=== PATIENT | male | born 1995 | race Asian ===

== ENCOUNTER 2018-03-03 21:21 | Inpatient (IN) | payer BC ==
--- NOTE | 2018-03-03 21:40 | ED ---
Psychiatric Complaint - HPI Summary HPI Summary: Patient is a 22 y/o M brought in via EMS for suicide attempt under 941 order. Patient and his partner broke up a week ago, SI has been building since this occurrence. He states that he was at [facility] prepared to jump off the bridge but states he stopped himself. He notes previous attempts of self- harm. Patient is on Lexapro 10 mg daily. On triage, pain is denied and it is noted that patient has had re-occurring psychiatric issues and has been seeing a therapist the past year. Home medications and allergies are reviewed. - History Of Current Complaint Chief Complaint: EDMentalHealth Time Seen by Provider: 03/03/18 21:32 Hx Obtained From: Patient Onset/Duration: Lasting Weeks - SI onset a week ago and built up since, Still Present, Worse Since - a week ago Timing: Weeks - onset a week ago Severity Currently: None - pain denied on triage Character: Depressed Aggravating Factor(s): Recent Stress - relationship ended Alleviating Factor(s): Nothing Associated Signs And Symptoms: Positive: Negative Has Suicidal: Reports: Thoughts, With A Plan - Allergies/Home Medications Allergies/Adverse Reactions: Allergies Allergy/AdvReac Type Severity Reaction Status Date / Time apple Allergy Hives/Diff. Verified 03/03/18 21:28 Breathing/I tching vasquez Allergy Hives/Diff. Verified 03/03/18 21:28 Breathing/I tching hazelnut Allergy Anaphylatic Verified 03/03/18 21:28 Shock naproxen Allergy Hives Verified 03/03/18 21:28 peach Allergy Hives/Diff. Verified 03/03/18 21:28 Breathing/I tching pear Allergy Hives/Diff. Verified 03/03/18 21:28 Breathing/I tching strawberry Allergy Hives/Diff. Verified 03/03/18 21:28 Breathing/I tching Tree Nuts Allergy Hives/Diff. Verified 03/03/18 21:28 Breathing/I tching Home Medications: Home Medications Albuterol HFA INHALER* 1 inh INH Q4H PRN 03/03/18 [History Confirmed 03/03/18] EPINEPHrine SYR 0.1MG/ML* [EPINEPHphrine SYR 0.1MG/ML*] 0.1 mg IM ONCE PRN 03/03 [History Confirmed 03/03/18] Escitalopram Oxalate [Lexapro 10 mg] 10 mg PO DAILY 03/03/18 [History Confirmed 03/03/18] Loratadine [Claritin 10 MG CAP] 10 mg PO PRN 03/03/18 [History] PMH/Surg Hx/FS Hx/Imm Hx Sensory History: Denies: Hx Legally Blind, Hx Deafness Opthamlomology History: Denies: Hx Legally Blind EENT History: Denies: Hx Deafness Psychiatric History: Reports: Hx Anxiety, Hx Bipolar Disorder Infectious Disease History: No Infectious Disease History: Denies: Traveled Outside the [place] in Last 30 Days - Family History Known Family History: Negative: Blood Disorder - Social History Alcohol Use: Rare Substance Use Type: Reports: Marijuana Smoking Status (MU): Never Smoked Tobacco Review of Systems Negative: Fever - on vitals, temp is 99 F Positive: Depressed, Other - SI w/ plan All Other Systems Reviewed And Are Negative: Yes Physical Exam - Summary Physical Exam Summary: VITAL SIGNS: Reviewed. GENERAL: Patient is a well-developed and nourished male who is lying comfortable in the stretcher. Patient is not in any acute respiratory distress. HEAD AND FACE: No signs of trauma. No ecchymosis, hematomas or skull depressions. No sinus tenderness. EYES: PERRLA, EOMI x 2, No injected conjunctiva, no nystagmus. EARS: Hearing grossly intact. Ear canals and tympanic membranes are within normal limits. MOUTH: Oropharynx within normal limits. NECK: Supple, trachea is midline, no adenopathy, no JVD, no carotid bruit, no c- spine tenderness, neck with full ROM. CHEST: Symmetric, no tenderness at palpation LUNGS: Clear to auscultation bilaterally. No wheezing or crackles. CVS: Regular rate and rhythm, S1 and S2 present, no murmurs or gallops appreciated. ABDOMEN: Soft, non-tender. No signs of distention. No rebound no guarding, and no masses palpated. Bowel sounds are normal. EXTREMITIES: FROM in all major joints, no edema, no cyanosis or clubbing. NEURO: Alert and oriented x 3. No acute neurological deficits. Speech is normal and follows commands. SKIN: Dry and warm Triage Information Reviewed: Yes Vital Signs On Initial Exam: Initial Vitals Temp Pulse Resp BP Pulse Ox 99 F 102 16 129/77 99 03/03/18 21:24 03/03/18 21:24 03/03/18 21:24 03/03/18 21:24 03/03/18 21:24 Vital Signs Reviewed: Yes Diagnostics - Vital Signs Vital Signs Temp Pulse Resp BP Pulse Ox 03/03/18 21:24 99 F 102 16 129/77 99 - Laboratory Result Diagrams: 03/03/18 21:50 03/03/18 22:39 Lab Statement: Any lab studies that have been ordered have been reviewed, and results considered in the medical decision making process. Re-Evaluation - Re-Evaluation First Eval Re-Evaluation Time: 23:36 Comment: Patient medically cleared for MHE. Course/Dx - Course Course Of Treatment: Patient is a 22 y/o M brought in via EMS for suicide attempt under 941 order. Patient and his partner broke up a week ago, SI has been building since this occurrence. He states that he was a [address] [place] prepared to jump off the bridge but states he stopped himself. He notes previous attempts of self-harm. Patient is on Lexapro 10 mg daily. On triage, pain is denied and it is noted that patient has had re-occurring psychiatric issues and has been seeing a therapist the past year. Physical exam was unremarkable. Tox screen was negative. UA showed 1+ blood and 1+ RBC. Labs showed TSH 2.64, ALT 80, glucose 105. Patient was medically cleared for MHE. 0125 Dr. Tamayo reviewed the patients case. Dr. Tamayo will admit patient to [facility] with Dx of bipolar disorder. - Differential Dx/Clinical Impression Provider Diagnosis: Bipolar disorder - Physician Notifications Discussed Care Of Patient With: Anthony Taamyo Time Discussed With Above Provider: 01:25 Instructed by Provider To: Other - 0125 Dr. Tamayo reviewed the patients case. Dr. Tamayo will admit patient to [facility] with Dx of bipolar disorder. Discharge - Sign-Out/Discharge Documenting (check all that apply): Patient Departure - admit - Discharge Plan Condition: Good Disposition: PSYCHIATRIC FACILITY-[facility] Referrals: No Primary Care Phys,NOPCP [Primary Care Provider] - - Attestation Statements Document Initiated by Scribe: Yes Documenting Scribe: Adriel White Provider For Whom Scribe is Documenting (Include Credential): Wally Smyth MD Scribe Attestation: Adriel Stroud , scribed for Wally Smyth MD on 03/04/18 at 0144.
[2018-03-03 21:59] LABS: ABS Basophils 0.1 10^3/ul (0-0.2); ABS Eosinophils 0.2 10^3/ul (0-0.6); ABS Monocytes 0.4 10^3/ul (0-0.8); ABS Neutrophils 5.5 10^3/ul (1.5-7.7); ABS Nucleated RBC 0 10^3/ul; Eosinophil % 2.6 % (0-6); Hematocrit 42 % (42-52); Hemoglobin 14.4 g/dl (14.0-18.0); Lymphocyte % 24.7 % (25-47); Mean Corpuscular HGB Conc 34 g/dl (31-36); Mean Corpuscular Hemoglobin 28 pg (27-31); Mean Corpuscular Volume 82 fL (80-94); Mean Platelet Volume 7.9 fL (7.4-10.4); Nucleated Red Blood Cells % 0.2; Platelet Count 341 10^3/ul (150-450); Red Blood Count 5.12 10^6/ul (4.00-5.40); Red Cell Distribution Width 14 % (10.5-15); White Blood Count 8.2 10^3/ul (3.5-10.8)
[2018-03-03 22:12] LABS: EGFR Non-African American 110.4 (>60)
[2018-03-03 22:49] LABS: Urine Appearance Clear; Urine Blood 1+ (Negative); Urine Color Yellow; Urine Ketones Negative (Negative); Urine Protein Negative (Negative); Urine Red Blood Cell 1+(3-5/hpf) (Absent); Urine Specific Gravity 1.023 (1.010-1.030); Urine Urobilinogen Negative (Negative); Urine White Blood Cell Absent (Absent)
[2018-03-04] MEDS ORDERED: Acetaminophen TAB* 325 MG PO PRN (06:38)
[2018-03-04] MEDS ORDERED: Al Hydrox/Mg Hydrox/Simet LIQ* 30 ML UDC PO PRN (06:38)
[2018-03-04] MEDS ORDERED: Albuterol HFA INHALER* 8 gm MDI INH PRN (07:30)
[2018-03-04] MEDS ORDERED: EPINEPHrine PEN ADULT(NF) 0.3 MG SYRINGE IM PRN (07:32)
[2018-03-04] MEDS: LORATADINE 10 MG PO SCH (09:54)
[2018-03-04] MEDS: CMC: Escitalopram (NF) 10 MG TAB PO SCH (09:54)
[2018-03-04] MEDS: Vitamin THERAPEUTIC TAB PO SCH (09:55)
--- NOTE | 2018-03-04 15:39 | HP ---
H&P (Free Text) History and Physical: JUSTIFICATION FOR ADMISSION: Patient presented to emergency room with suicidal ideation and self-aborted attempt, worsening depression and recent break up. He requires inpatient psychiatric admission in order to provide treatment and stabilization as he is a danger to himself. CHIEF COMPLAINT: "I was ready to but stopped myself and called [employer] [employer] [employer] HISTORY OF THE PRESENT ILLNESS: Patient is a 22 y/o male, single, living at student housing, attending jennifer year at [employer], with history of Depressive disorder. Patient was admitted to inpatient unit for worsening of his depression following recent break up with his boyfriend of 3 years, suicidal thoughts, feelings of hopeless , helpless and worthless. Patient reports that he was having increase energy level, decrease need for sleep, impulsive in his actions, euphoric/ irritable feeling with suicidal thoughts. Patient made preparations to end his life, writing letters, cleaning room, leaving passwords etc. At 7:45 PM [place] and other information in a baggie so he could be identified. He scaled a fence and then sat contemplating jumping for about 30 minutes but was unable to get off the vira. He then became upset and started to consider reasons to live and found that his relationship with his ex was something that stopped him. He then called public safety to bring him to the hospital. Patient was compliant with his outpatient medication but recently his Lexapro was reduced to 10 mg from 15m a day due to concerns of Bipolar Diagnosis and hypomanic symptoms. Patient reportedly has been reporting no psychotic symptoms. Patient denied any suicidal or homicidal ideation on the unit. Patient continued to exhibit behavior that is in control on the unit. Patient feels safe on the unit and is acceptive of the treatment . PAST PSYCHIATRIC HISTORY: Patient has history of no inpatient psychiatric hospitalization. Patient has history of outpatient psychiatric treatment for his depression at [facility] ([facility]) that he sees Dr. Pompa for. Patient also reports being on individual therapy on a weekly basis until spring of this year and was switched to weekly group therapy. As per patient he initially recommended a change in therapist and other therapist could see him once a month and he did not feel that (once a month frequency) was beneficial hence was switched to group therapy. Patients medication was Lexapro 15 mg a day which was reduced to 10 mg a day and was also started on Hydroxyzine as needed for anxiety and sleep. Patient has history of suicidal thoughts and plan in the past but no attempt (first was during high school due to conflict with his parents around his sexuality was talked out by his boyfriend, second was last summer when he wanted to drive off the vira but did not attempt). Patient has history of no homicidal threats, intent or attempt. Patient reports no history of aggressive and agitated behavior when decompensates. No access to firearm reported. SUBSTANCE ABUSE HISTORY: Patient uses marijuana not frequent about once in 2 month casually with friends. Patient reports using alcohol every other week but reported consuming heavy when in hypomanic episode. Urine toxicology was negative and blood alcohol level was <10. PAST MEDICAL HISTORY: No active medical problems ALLERGIES: Naproxen, food allergies as per chart. FAMILY PSYCHIATRIC HISTORY: Patient has family history of no know psychiatric illness or substance/alcohol abuse or suicide in the family. FAMILY/PSYCHOSOCIAL HISTORY: Patient currently lives at student housing. Patient is homosexual and was in a relationship with his ex- boyfriend until break up about a week ago. Patient is currently no in any romantic relationship. Patient education level is jennifer year at [employer]. Patient was raised by his parents in [place]. Patients relationship with parent was estranged when patient came out with his sexual orientation of being homosexual. Patient support system includes his friends. REVIEW OF SYSTEMS: Patients review of symptoms was negative for any physical complaint. Vitals were stable. Patients ED physical exam was reviewed which is grossly normal with no active medical problem. Physical Exam Summary: VITAL SIGNS: Reviewed. GENERAL: Patient is a well-developed and nourished male who is lying comfortable in the stretcher. Patient is not in any acute respiratory distress. HEAD AND FACE: No signs of trauma. No ecchymosis, hematomas or skull depressions. No sinus tenderness. EYES: PERRLA, EOMI x 2, No injected conjunctiva, no nystagmus. EARS: Hearing grossly intact. Ear canals and tympanic membranes are within normal limits. MOUTH: Oropharynx within normal limits. NECK: Supple, trachea is midline, no adenopathy, no JVD, no carotid bruit, no c- spine tenderness, neck with full ROM. CHEST: Symmetric, no tenderness at palpation LUNGS: Clear to auscultation bilaterally. No wheezing or crackles. CVS: Regular rate and rhythm, S1 and S2 present, no murmurs or gallops appreciated. ABDOMEN: Soft, non-tender. No signs of distention. No rebound no guarding, and no masses palpated. Bowel sounds are normal. EXTREMITIES: FROM in all major joints, no edema, no cyanosis or clubbing. NEURO: Alert and oriented x 3. No acute neurological deficits. Speech is normal and follows commands. MENTAL STATUS EXAMINATION: Appearance: 22 y/o male, anxious, sitting down, making fair eye contact, fair grooming and hygiene. Behavior: cooperative Gait: normal Abnormal motor activity: none Speech: normal tone and volume, normal rate and rhythm Mood: better Affect: euthymic to euphoric Thought process: coherent to circumstantial Thought Content: Suicidal/Homicidal ideation: denied at the time of evaluation Delusions: none Obsessions: none Phobia: none Perceptual disturbance: none Attention: fair Orientation: intact Concentration: fair Memory: fair Insight: fair Judgment: fair Impulse control: fair IMPRESSION: Patient with history of Depression and recent Hypomanic like symptoms. Patient currently admitted due to worsening of depression and suicidal thoughts mixed with some hypomanic symptoms. Patient has also struggled with recent break up from a relationship of 3 years. Patient is a danger to self if discharged hence will be stabilized on inpatient unit with medication adjustments and therapy. DIAGNOSIS: Bipolar Disorder unspecified Prov: Bipolar II Disorder vs Bipolar I Disorder PLAN: Admit to U on Q 15 min observation. Patient is full code. Patient is on voluntary admission status Integrate patient into the milieu individual and group psychotherapy MMPI and psychological consult with Dr. Bates. Social work consult for therapy and discharge planning Will hold family meeting with parents to increase Data base. Patient gave informed consent to start the following medications: Patient Lexapro was continued at 10 mg PO QAM with plan to increase as tolerated and covered with a mood stabilizer to prevent any manic symptoms. Patient was discussed about various mood stabilizer including second generation antipsychotic medications. Patient agreed to start Lamictal 25 mg PO QAM with plan to monitor improvement and side effects. Will continue to monitor and f/u for improvement and side effects. Sunil Diamond MD Attending Psychiatrist
[2018-03-04] MEDS: lamoTRIgine TAB(*) 25 MG PO SCH (16:24)
[2018-03-05] MEDS: LORATADINE 10 MG PO SCH (09:09)
[2018-03-05] MEDS: CMC: Escitalopram (NF) 10 MG TAB PO SCH (09:09)
[2018-03-05] MEDS: lamoTRIgine TAB(*) 25 MG PO SCH (09:10)
[2018-03-05] MEDS: Vitamin THERAPEUTIC TAB PO SCH (09:10)
[2018-03-05] MEDS ORDERED: hydrOXYzine HCL TAB* 50 MG PO PRN (11:51)
--- NOTE | 2018-03-05 12:25 | PN ---
Subjective - Subjective Date of Service: 03/05/18 Service Type: [id number] [facility] care 15 min low complexity Subjective: Patient was seen by self, discussed with treatment team, chart was reviewed. Patient has been compliant with his medications, no reported side effects. Patient reports continued symptoms of depression and anxiety, recurring suicidal thoughts but no intent or plan. Patient was restless and worried, wanting to cry. Patient sleeping has been fair. Patient eating has been fair. Patient has been cooperative with staff and following redirections. Patient behavior has been in control and safe on all check. Patient met his friends yesterday and felt better after that. Patient also communicated with parents and they will be visiting patients on the weekend. Patient mood was anxious and dysphoric. Patient has been reporting no homicidal ideation. No psychotic symptoms of delusions or hallucinations. Objective - Appearance Appearance: Healthy Appearing, Obese Dysmorphic Features: No Hygiene: Normal Grooming: Fairly Well Kept - Behavior Psychomotor Activities: Normal Exhibits Abnormal Movement: No - Attitude and Relatedness Attitude and Relatedness: Cooperative Eye Contact: Fair - Speech Quality: Unpressured Latencies: Normal Quantity: Appropriate - Mood Patient's Decription of Mood: "Anxious" - Affect Observed Affect: Tense Affect Consistent with: Dysphoria - Thought Process Patient's Thought Process: Coherent, Circumstantial Thought Content: Yes Passive Wish, No Suicidal Planning, No Homicidal Ideation, No Paranoid Ideation - Sensorium Experiencing Hallucinations: No, Sensorium is Clear Type of Hallucinations: Visual: No, Auditory: No, Command: No - Level of Consciousness Level of Consciousness: Alert Orientation: Yes Intact, Yes Orientated to Time, Yes Orientated to Place, Yes Orientated to Person - Impulse Control Impulse Control: Intact - Insight and Judgement Insight and Judgement: Fair - Group Participation Particating in Group Activities: Yes - Medication Management Medication Management Adherence: Yes Assessment - Assessment Merits Inpatient Hospitalization: For Immediate Safety, For Stabilization, For Discharge Planning Inpatient DSM-V Dx: F33.9 Clinical Impression: Patient with history of Depression and recent Hypomanic like symptoms. Patient currently admitted due to worsening of depression and suicidal thoughts mixed with some hypomanic symptoms. Patient has also struggled with recent break up from a relationship of 3 years. Patient is a danger to self if discharged hence will be stabilized on inpatient unit with medication adjustments and therapy. MHU: Problem List - Patient Problems (1) Bipolar affective disorder Current Visit: Yes Status: Acute (2) Anxiety disorder Current Visit: Yes Status: Acute Code(s): F41.9 - ANXIETY DISORDER, UNSPECIFIED SNOMED Code(s): 647252862 Plan - Plan Treatment Plan: Name: JUNIOR REDMAN Birthdate: 1995 [id number] - Patient continues to be hospitalized due to recent suicidal thoughts with aborted attempt, mood instability, anxiety and impulsivity. - Patient's medications were continued with Lamictal 25 mg a day and Lexapro 10 mg a day. - Patient will be monitored for improvement and side effects. Risk and benefits were discussed. - Patient was encouraged to continue his participation in the milieu, group and individual therapy. Medications: Current Medications Acetaminophen (Tylenol Tab*) 650 mg PO Q4H PRN PRN Reason: PAIN or TEMP > 101 F Al Hydrox/Mg Hydrox/Simethicone (Maalox Plus*) 30 ml PO Q4H PRN PRN Reason: INDIGESTION Albuterol (Ventolin Hfa Inhaler*) 1 puff INH Q4H PRN PRN Reason: SOB/WHEEZING Epinephrine HCl (Epipen Adult(Nf)) 0.3 mg IM ONCE PRN PRN Reason: ALLERGIC REACTION Escitalopram Oxalate (Lexapro (Nf)) 10 mg PO DAILY [facility] Last Admin: 03/05/18 09:09 Dose: 10 mg Hydroxyzine HCl (Atarax Tab*) 50 mg PO Q6H PRN PRN Reason: ANXIETY Lamotrigine (Lamictal Tab(*)) 25 mg PO DAILY [facility] Last Admin: 03/05/18 09:10 Dose: 25 mg Loratadine (Claritin Tab(Nf)) 10 mg PO DAILY [facility] Last Admin: 03/05/18 09:09 Dose: 10 mg Multivitamins (Theragran Tab*) 1 tab PO DAILY [facility] Last Admin: 03/05/18 09:10 Dose: 1 tab
--- NOTE | 2018-03-05 17:25 | PN ---
MHU: Group Therapy Note - Service Type Service Type: [id number] Group Psychotherapy - Medication Education Group: Patient was attentive and participatory in group, and remained in good behavioral control. Patient expressed positive insights regarding relevant treatment interventions. Patient stated understanding of material discussed and had appropriate questions.
[2018-03-06] MEDS: CMC: Escitalopram (NF) 10 MG TAB PO SCH (09:01)
[2018-03-06] MEDS: Vitamin THERAPEUTIC TAB PO SCH (09:01)
[2018-03-06] MEDS: LORATADINE 10 MG PO SCH (09:01)
[2018-03-06] MEDS: lamoTRIgine TAB(*) 25 MG PO SCH (09:01)
--- NOTE | 2018-03-06 13:11 | PN ---
Subjective - Subjective Date of Service: 03/06/18 Service Type: [id number] [facility] care 15 min low complexity Subjective: Patient was seen by self, discussed with treatment team, chart was reviewed. Patient has been compliant with his medications, no reported side effects. Patient reports continued some improvement in symptoms of depression and anxiety , reduction in suicidal thoughts. Patient was less restless and worried today and reports that yoga exercise helped him this morning and also had a better sleep last night. Patient eating has been fair. Patient has been cooperative with staff and following redirections. Patient was asking privileges to use computer. Patient behavior has been in control and safe on all check. Patient looking forward to have a meeting with his parents tomorrow evening. Patient mood was less anxious and dysphoric. Patient has been reporting no homicidal ideation. No psychotic symptoms of delusions or hallucinations. Objective - Appearance Appearance: Healthy Appearing, Obese Dysmorphic Features: No Hygiene: Normal Grooming: Fairly Well Kept - Behavior Psychomotor Activities: Normal Exhibits Abnormal Movement: No - Attitude and Relatedness Attitude and Relatedness: Cooperative Eye Contact: Fair - Speech Quality: Unpressured Latencies: Normal Quantity: Appropriate - Mood Patient's Decription of Mood: "Anxious" - Affect Observed Affect: Tense - less Affect Consistent with: Euthymia - Thought Process Patient's Thought Process: Coherent Thought Content: No Passive Wish, No Suicidal Planning, No Homicidal Ideation, No Paranoid Ideation - Sensorium Experiencing Hallucinations: No, Sensorium is Clear Type of Hallucinations: Visual: No, Auditory: No, Command: No - Level of Consciousness Level of Consciousness: Alert Orientation: Yes Intact, Yes Orientated to Time, Yes Orientated to Place, Yes Orientated to Person - Impulse Control Impulse Control: Intact - Insight and Judgement Insight and Judgement: Fair - Group Participation Particating in Group Activities: Yes - Medication Management Medication Management Adherence: Yes Assessment - Assessment Merits Inpatient Hospitalization: For Immediate Safety, For Stabilization, For Discharge Planning Inpatient DSM-V Dx: F33.9 Clinical Impression: Patient with history of Depression and recent Hypomanic like symptoms. Patient currently admitted due to worsening of depression and suicidal thoughts mixed with some hypomanic symptoms. Patient has also struggled with recent break up from a relationship of 3 years. Patient is a danger to self if discharged hence will be stabilized on inpatient unit with medication adjustments and therapy. MHU: Problem List - Patient Problems (1) Bipolar affective disorder Current Visit: Yes Status: Acute (2) Anxiety disorder Current Visit: Yes Status: Acute Code(s): F41.9 - ANXIETY DISORDER, UNSPECIFIED SNOMED Code(s): 949859531 Plan - Plan Treatment Plan: Name: JUNIOR REDMAN Birthdate: 1995 [id number] - Patient continues to be hospitalized due to recent suicidal thoughts with aborted attempt, mood instability, anxiety and impulsivity. - Patient's medications were continued with Lamictal 25 mg a day and Lexapro 10 mg a day. - Patient will be monitored for improvement and side effects. Risk and benefits were discussed. - Patient was encouraged to continue his participation in the milieu, group and individual therapy. Medications: Current Medications Acetaminophen (Tylenol Tab*) 650 mg PO Q4H PRN PRN Reason: PAIN or TEMP > 101 F Al Hydrox/Mg Hydrox/Simethicone (Maalox Plus*) 30 ml PO Q4H PRN PRN Reason: INDIGESTION Albuterol (Ventolin Hfa Inhaler*) 1 puff INH Q4H PRN PRN Reason: SOB/WHEEZING Epinephrine HCl (Epipen Adult(Nf)) 0.3 mg IM ONCE PRN PRN Reason: ALLERGIC REACTION Escitalopram Oxalate (Lexapro (Nf)) 10 mg PO DAILY [facility] Last Admin: 03/06/18 09:01 Dose: 10 mg Hydroxyzine HCl (Atarax Tab*) 50 mg PO Q6H PRN PRN Reason: ANXIETY Lamotrigine (Lamictal Tab(*)) 25 mg PO DAILY [facility] Last Admin: 03/06/18 09:01 Dose: 25 mg Loratadine (Claritin Tab(Nf)) 10 mg PO DAILY [facility] Last Admin: 03/06/18 09:01 Dose: 10 mg Multivitamins (Theragran Tab*) 1 tab PO DAILY [facility] Last Admin: 03/06/18 09:01 Dose: 1 tab
[2018-03-07] MEDS: Vitamin THERAPEUTIC TAB PO SCH (08:53)
[2018-03-07] MEDS: lamoTRIgine TAB(*) 25 MG PO SCH (08:53)
[2018-03-07] MEDS: CMC: Escitalopram (NF) 10 MG TAB PO SCH (08:53)
[2018-03-07] MEDS: LORATADINE 10 MG PO SCH (08:53)
--- NOTE | 2018-03-07 11:44 | PN ---
MHU: Group Therapy Note - Service Type Service Type: [id number] Group Psychotherapy - Cognitive Behavioral Group Therapy ( CBT):Patient was attentive and participatory in CBT programming this morning, and remained in good behavioral control. Patient expressed positive insights regarding relevant treatment interventions and goals.
[2018-03-07] MEDS ORDERED: diPHENhydraMINE PO* 50 MG ONE (12:31)
--- NOTE | 2018-03-07 12:52 | PN ---
Subjective - Subjective Date of Service: 03/07/18 Service Type: [id number] Hosp care 15 min low complexity Subjective: Patient was seen by self, discussed with treatment team, chart was reviewed. Patient has been compliant with his medications, no reported side effects. Patient reports continued improvement in symptoms of depression and anxiety, reduction in suicidal thoughts, patient reports some anxiety and stress around meeting with parents tonight. Patient feels that they are not supportive of his decision and wants to be assertive with his parents and treatment that he is seeking. Patient reports that his mother is a nurse but has limited understanding of mental health and treatment. Patient attending groups and using privileges appropriately . Patient eating has been fair. Patient has been cooperative with staff and following redirections. Patient behavior has been in control and safe on all check. Patient mood was less anxious and dysphoric. Patient has been reporting no homicidal ideation. No psychotic symptoms of delusions or hallucinations. Patient was educated about side effects from lamictal including Rash and needing to go up slowly. Objective - Appearance Appearance: Healthy Appearing, Obese Dysmorphic Features: No Hygiene: Normal Grooming: Fairly Well Kept - Behavior Psychomotor Activities: Normal Exhibits Abnormal Movement: No - Attitude and Relatedness Attitude and Relatedness: Cooperative Eye Contact: Fair - Speech Quality: Unpressured Latencies: Normal Quantity: Terse - Mood Patient's Decription of Mood: "Anxious" - Affect Observed Affect: Tense Affect Consistent with: Euphoria - less - Thought Process Patient's Thought Process: Coherent Thought Content: No Passive Wish, No Suicidal Planning, No Homicidal Ideation, No Paranoid Ideation - Sensorium Experiencing Hallucinations: No, Sensorium is Clear Type of Hallucinations: Visual: No, Auditory: No, Command: No - Level of Consciousness Level of Consciousness: Alert Orientation: Yes Intact, Yes Orientated to Time, Yes Orientated to Place, Yes Orientated to Person - Impulse Control Impulse Control: Intact - Insight and Judgement Insight and Judgement: Fair - Group Participation Particating in Group Activities: Yes - Medication Management Medication Management Adherence: Yes Assessment - Assessment Merits Inpatient Hospitalization: For Immediate Safety, For Stabilization, For Discharge Planning Inpatient DSM-V Dx: F33.9 Clinical Impression: Patient with history of Depression and recent Hypomanic like symptoms. Patient currently admitted due to worsening of depression and suicidal thoughts mixed with some hypomanic symptoms. Patient has also struggled with recent break up from a relationship of 3 years. Patient is a danger to self if discharged hence will be stabilized on inpatient unit with medication adjustments and therapy. MHU: Problem List - Patient Problems (1) Bipolar affective disorder Current Visit: Yes Status: Acute (2) Anxiety disorder Current Visit: Yes Status: Acute Code(s): F41.9 - ANXIETY DISORDER, UNSPECIFIED SNOMED Code(s): 124310550 Plan - Plan Treatment Plan: Name: JUNIOR REDMAN Birthdate: 1995 [id number] - Patient continues to be hospitalized due to recent suicidal thoughts with aborted attempt, mood instability, anxiety and impulsivity. - Patient's medications were continued with Lamictal 25 mg a day and Lexapro 10 mg a day. - Patient to meet his parents tonight that are coming from [place]. - Patient will be monitored for improvement and side effects. Risk and benefits were discussed. - Patient was encouraged to continue his participation in the milieu, group and individual therapy. Medications: Current Medications Acetaminophen (Tylenol Tab*) 650 mg PO Q4H PRN PRN Reason: PAIN or TEMP > 101 F Al Hydrox/Mg Hydrox/Simethicone (Maalox Plus*) 30 ml PO Q4H PRN PRN Reason: INDIGESTION Albuterol (Ventolin Hfa Inhaler*) 1 puff INH Q4H PRN PRN Reason: SOB/WHEEZING Epinephrine HCl (Epipen Adult(Nf)) 0.3 mg IM ONCE PRN PRN Reason: ALLERGIC REACTION Escitalopram Oxalate (Lexapro (Nf)) 10 mg PO DAILY [facility] Last Admin: 03/07/18 08:53 Dose: 10 mg Hydroxyzine HCl (Atarax Tab*) 50 mg PO Q6H PRN PRN Reason: ANXIETY Lamotrigine (Lamictal Tab(*)) 25 mg PO DAILY [facility] Last Admin: 03/07/18 08:53 Dose: 25 mg Loratadine (Claritin Tab(Nf)) 10 mg PO DAILY [facility] Last Admin: 03/07/18 08:53 Dose: 10 mg Multivitamins (Theragran Tab*) 1 tab PO DAILY [facility] Last Admin: 03/07/18 08:53 Dose: 1 tab
[2018-03-07] MEDS ORDERED: diPHENhydraMINE PO* 50 MG PO ONE (15:00)
[2018-03-08] MEDS: LORATADINE 10 MG PO SCH (08:57)
[2018-03-08] MEDS: CMC: Escitalopram (NF) 10 MG TAB PO SCH (08:57)
[2018-03-08] MEDS: lamoTRIgine TAB(*) 25 MG PO SCH (08:57)
[2018-03-08] MEDS: Vitamin THERAPEUTIC TAB PO SCH (08:58)
[2018-03-09] MEDS: LORATADINE 10 MG PO SCH (09:05)
[2018-03-09] MEDS: lamoTRIgine TAB(*) 25 MG PO SCH (09:05)
[2018-03-09] MEDS: Vitamin THERAPEUTIC TAB PO SCH (09:05)
[2018-03-09] MEDS: CMC: Escitalopram (NF) 10 MG TAB PO SCH (09:05)
--- NOTE | 2018-03-09 19:42 | PN ---
Subjective - Subjective Date of Service: 03/09/18 Service Type: [id number] Hosp care 15 min low complexity Subjective: Junior reports that he was more depressed today than yesterday and suicide crossed his mind again this morning. His parents and few close friends visited which did help. Having difficulty with sleep which is interupted a lot. Appetite is good. Denies psychosis. Objective - Appearance Appearance: Healthy Appearing, Obese Dysmorphic Features: No Hygiene: Normal Grooming: Well Kept - Behavior Psychomotor Activities: Normal Exhibits Abnormal Movement: No - Attitude and Relatedness Attitude and Relatedness: Cooperative Eye Contact: Fair - Speech Quality: Unpressured Latencies: Normal Quantity: Appropriate - Mood Patient's Decription of Mood: "Sad" - Affect Observed Affect: Constricted - Thought Process Patient's Thought Process: Coherent, Goal Directed Thought Content: Yes Passive Wish, No Suicidal Planning, No Homicidal Ideation, No Paranoid Ideation - Sensorium Experiencing Hallucinations: No, Sensorium is Clear Type of Hallucinations: Visual: No, Auditory: No, Command: No - Level of Consciousness Level of Consciousness: Alert Orientation: Yes Intact, Yes Orientated to Time, Yes Orientated to Place, Yes Orientated to Person - Impulse Control Impulse Control: Tenuous - Insight and Judgement Insight and Judgement: Poor - Group Participation Particating in Group Activities: Yes - Medication Management Medication Management Adherence: Yes Assessment - Assessment Merits Inpatient Hospitalization: For Immediate Safety, For Stabilization, Pending Safe DC Plan Inpatient DSM-V Dx: F33.9 Clinical Impression: Patient with history of Depression and recent Hypomanic like symptoms. Patient currently admitted due to worsening of depression and suicidal thoughts mixed with some hypomanic symptoms. Patient has also struggled with recent break up from a relationship of 3 years. Patient is a danger to self if discharged hence will be stabilized on inpatient unit with medication adjustments and therapy. Plan - Plan Treatment Plan: Name: JUNIOR REDMAN Birthdate: 1995 [id number] - Patient continues to be hospitalized due to recent suicidal thoughts with aborted attempt, mood instability, anxiety and impulsivity. - Patient's medications were continued with Lamictal 25 mg a day and Lexapro 10 mg a day. - Patient to meet his parents tonight that are coming from [place]. - Patient will be monitored for improvement and side effects. Risk and benefits were discussed. - Patient was encouraged to continue his participation in the milieu, group and individual therapy. Continued Medication Management: Continue Outpt Medication Medications: Current Medications Acetaminophen (Tylenol Tab*) 650 mg PO Q4H PRN PRN Reason: PAIN or TEMP > 101 F Al Hydrox/Mg Hydrox/Simethicone (Maalox Plus*) 30 ml PO Q4H PRN PRN Reason: INDIGESTION Albuterol (Ventolin Hfa Inhaler*) 1 puff INH Q4H PRN PRN Reason: SOB/WHEEZING Epinephrine HCl (Epipen Adult(Nf)) 0.3 mg IM ONCE PRN PRN Reason: ALLERGIC REACTION Escitalopram Oxalate (Lexapro (Nf)) 10 mg PO DAILY [facility] Last Admin: 03/09/18 09:05 Dose: 10 mg Hydroxyzine HCl (Atarax Tab*) 50 mg PO Q6H PRN PRN Reason: ANXIETY Lamotrigine (Lamictal Tab(*)) 25 mg PO DAILY [facility] Last Admin: 03/09/18 09:05 Dose: 25 mg Loratadine (Claritin Tab(Nf)) 10 mg PO DAILY [facility] Last Admin: 03/09/18 09:05 Dose: 10 mg Multivitamins (Theragran Tab*) 1 tab PO DAILY [facility] Last Admin: 03/09/18 09:05 Dose: 1 tab - Discharge Plan Discharge Plan: Outpatient Follow Up Outpatient Program: [facility]
[2018-03-10] MEDS: CMC: Escitalopram (NF) 10 MG TAB PO SCH (08:54)
[2018-03-10] MEDS: lamoTRIgine TAB(*) 25 MG PO SCH (08:54)
[2018-03-10] MEDS: Vitamin THERAPEUTIC TAB PO SCH (08:54)
[2018-03-10] MEDS: LORATADINE 10 MG PO SCH (08:54)
--- NOTE | 2018-03-10 13:08 | PN ---
Subjective - Subjective Date of Service: 03/10/18 Service Type: [id number] [facility] care 15 min low complexity Subjective: Patient was seen by self, discussed with treatment team, chart was reviewed. Patient has been compliant with his medications, no reported side effects. Patient reports continued improvement in symptoms of depression and anxiety, resolution of suicidal thoughts, patient do report some anxiety and stress after meeting with parents and reemergence of suicidal thoughts briefly over the weekend. Patient felt that parents were not supportive of his hospitalization and wanted to him to take care of things better outside the hospital. But patient feels better today after processing his thinking and feels that he was able to be assertive in his decision making and was able to get his message across to his parents. Patient reports that therapy help him and feels that friends are very supportive of him. Patient reports that he is going to make it less stressful for him in the community upon discharge and more supportive. Patient attending groups and using privileges appropriately . Patient eating has been fair. Patient has been cooperative with staff and following redirections. Patient behavior has been in control and safe on all check. Patient has been reporting no homicidal ideation. No psychotic symptoms of delusions or hallucinations. Objective - Appearance Appearance: Healthy Appearing, Obese Dysmorphic Features: No Hygiene: Normal Grooming: Fairly Well Kept - Behavior Psychomotor Activities: Normal Exhibits Abnormal Movement: No - Attitude and Relatedness Attitude and Relatedness: Cooperative Eye Contact: Fair - Speech Quality: Unpressured Latencies: Normal Quantity: Appropriate - Mood Patient's Decription of Mood: "Fine" - Affect Observed Affect: Fair Affect Consistent with: Dysphoria - Thought Process Patient's Thought Process: Coherent, Goal Directed Thought Content: No Passive Wish, No Suicidal Planning, No Homicidal Ideation, No Paranoid Ideation - Sensorium Experiencing Hallucinations: No, Sensorium is Clear Type of Hallucinations: Visual: No, Auditory: No, Command: No - Level of Consciousness Level of Consciousness: Alert Orientation: Yes Intact, Yes Orientated to Time, Yes Orientated to Place, Yes Orientated to Person - Impulse Control Impulse Control: Intact - Insight and Judgement Insight and Judgement: Fair - Group Participation Particating in Group Activities: Yes - Medication Management Medication Management Adherence: Yes Assessment - Assessment Merits Inpatient Hospitalization: For Immediate Safety, For Stabilization, For Discharge Planning Inpatient DSM-V Dx: F33.9 Clinical Impression: Patient with history of Depression and recent Hypomanic like symptoms. Patient currently admitted due to worsening of depression and suicidal thoughts mixed with some hypomanic symptoms. Patient has also struggled with recent break up from a relationship of 3 years. Patient is a danger to self if discharged hence will be stabilized on inpatient unit with medication adjustments and therapy. MHU: Problem List - Patient Problems (1) Bipolar affective disorder Current Visit: Yes Status: Acute (2) Anxiety disorder Current Visit: Yes Status: Acute Code(s): F41.9 - ANXIETY DISORDER, UNSPECIFIED SNOMED Code(s): 732983372 Plan - Plan Treatment Plan: Name: JUNIOR REDMAN Birthdate: 1995 [id number] - Patient continues to be hospitalized due to recent suicidal thoughts with aborted attempt, mood instability, anxiety and impulsivity. - Patient's medications were continued with Lamictal 25 mg a day and Lexapro 10 mg a day. - Patient provided supportive therapy and planing discharge for tomorrow if continued improvement with outpatient appointment. - Patient will be monitored for improvement and side effects. Risk and benefits were discussed. - Patient was encouraged to continue his participation in the milieu, group and individual therapy. Medications: Current Medications Acetaminophen (Tylenol Tab*) 650 mg PO Q4H PRN PRN Reason: PAIN or TEMP > 101 F Al Hydrox/Mg Hydrox/Simethicone (Maalox Plus*) 30 ml PO Q4H PRN PRN Reason: INDIGESTION Albuterol (Ventolin Hfa Inhaler*) 1 puff INH Q4H PRN PRN Reason: SOB/WHEEZING Epinephrine HCl (Epipen Adult(Nf)) 0.3 mg IM ONCE PRN PRN Reason: ALLERGIC REACTION Escitalopram Oxalate (Lexapro (Nf)) 10 mg PO DAILY [facility] Last Admin: 03/10/18 08:54 Dose: 10 mg Hydroxyzine HCl (Atarax Tab*) 50 mg PO Q6H PRN PRN Reason: ANXIETY Lamotrigine (Lamictal Tab(*)) 25 mg PO DAILY [facility] Last Admin: 03/10/18 08:54 Dose: 25 mg Loratadine (Claritin Tab(Nf)) 10 mg PO DAILY [facility] Last Admin: 03/10/18 08:54 Dose: 10 mg Multivitamins (Theragran Tab*) 1 tab PO DAILY [facility] Last Admin: 03/10/18 08:54 Dose: 1 tab
[2018-03-10] MEDS ORDERED: Benzocaine (DENTAL) 10%* TOP.GEL TOPICAL PRN (15:28)
[2018-03-10] MEDS ORDERED: BENZOCAINE TOPICAL PRN (15:53)
[2018-03-11 08:00] VITALS: BP 121/75
[2018-03-11] MEDS: LORATADINE 10 MG PO SCH (08:51)
[2018-03-11] MEDS: CMC: Escitalopram (NF) 10 MG TAB PO SCH (08:51)
[2018-03-11] MEDS: lamoTRIgine TAB(*) 25 MG PO SCH (08:51)
[2018-03-11] MEDS: Vitamin THERAPEUTIC TAB PO SCH (08:51)
--- NOTE | 2018-03-11 16:14 | DS ---
Subjective - Subjective Service Types: [id number] [facility] complex over 30 min Discharge Date: 03/11/18 Subjective: JUSTIFICATION FOR ADMISSION: Patient presented to emergency room with suicidal ideation and self-aborted attempt, worsening depression and recent break up. He requires inpatient psychiatric admission in order to provide treatment and stabilization as he is a danger to himself. CHIEF COMPLAINT: "I was ready to but stopped myself and called [employer] [employer] HISTORY OF THE PRESENT ILLNESS: Patient is a 22 y/o male, single, living at student housing, attending jennifer year at [employer], with history of Depressive disorder. Patient was admitted to inpatient unit for worsening of his depression following recent break up with his boyfriend of 3 years, suicidal thoughts, feelings of hopeless , helpless and worthless. Patient reports that he was having increase energy level, decrease need for sleep, impulsive in his actions, euphoric/ irritable feeling with suicidal thoughts. Patient made preparations to end his life, writing letters, cleaning room, leaving passwords etc. At 7:45 PM [place] and other information in a baggie so he could be identified. He scaled a fence and then sat contemplating jumping for about 30 minutes but was unable to get off the vira. He then became upset and started to consider reasons to live and found that his relationship with his ex was something that stopped him. He then called public safety to bring him to the hospital. Patient was compliant with his outpatient medication but recently his Lexapro was reduced to 10 mg from 15m a day due to concerns of Bipolar Diagnosis and hypomanic symptoms. Patient reportedly has been reporting no psychotic symptoms. Patient denied any suicidal or homicidal ideation on the unit. Patient continued to exhibit behavior that is in control on the unit. Patient feels safe on the unit and is acceptive of the treatment . PAST PSYCHIATRIC HISTORY: Patient has history of no inpatient psychiatric hospitalization. Patient has history of outpatient psychiatric treatment for his depression at [facility] ([facility]) that he sees Dr. Pompa for. Patient also reports being on individual therapy on a weekly basis until spring of this year and was switched to weekly group therapy. As per patient he initially recommended a change in therapist and other therapist could see him once a month and he did not feel that (once a month frequency) was beneficial hence was switched to group therapy. Patients medication was Lexapro 15 mg a day which was reduced to 10 mg a day and was also started on Hydroxyzine as needed for anxiety and sleep. Patient has history of suicidal thoughts and plan in the past but no attempt (first was during high school due to conflict with his parents around his sexuality was talked out by his boyfriend, second was last summer when he wanted to drive off the vira but did not attempt). Patient has history of no homicidal threats, intent or attempt. Patient reports no history of aggressive and agitated behavior when decompensates. No access to firearm reported. SUBSTANCE ABUSE HISTORY: Patient uses marijuana not frequent about once in 2 month casually with friends. Patient reports using alcohol every other week but reported consuming heavy when in hypomanic episode. Urine toxicology was negative and blood alcohol level was <10. PAST MEDICAL HISTORY: No active medical problems ALLERGIES: Naproxen, food allergies as per chart. FAMILY PSYCHIATRIC HISTORY: Patient has family history of no know psychiatric illness or substance/alcohol abuse or suicide in the family. FAMILY/PSYCHOSOCIAL HISTORY: Patient currently lives at student housing. Patient is homosexual and was in a relationship with his ex- boyfriend until break up about a week ago. Patient is currently no in any romantic relationship. Patient education level is jennifer year at [employer]. Patient was raised by his parents in [place]. Patients relationship with parent was estranged when patient came out with his sexual orientation of being homosexual. Patient support system includes his friends. REVIEW OF SYSTEMS: Patients review of symptoms was negative for any physical complaint. Vitals were stable. Patients ED physical exam was reviewed which is grossly normal with no active medical problem. Physical Exam Summary: VITAL SIGNS: Reviewed. GENERAL: Patient is a well-developed and nourished male who is lying comfortable in the stretcher. Patient is not in any acute respiratory distress. HEAD AND FACE: No signs of trauma. No ecchymosis, hematomas or skull depressions. No sinus tenderness. EYES: PERRLA, EOMI x 2, No injected conjunctiva, no nystagmus. EARS: Hearing grossly intact. Ear canals and tympanic membranes are within normal limits. MOUTH: Oropharynx within normal limits. NECK: Supple, trachea is midline, no adenopathy, no JVD, no carotid bruit, no c- spine tenderness, neck with full ROM. CHEST: Symmetric, no tenderness at palpation LUNGS: Clear to auscultation bilaterally. No wheezing or crackles. CVS: Regular rate and rhythm, S1 and S2 present, no murmurs or gallops appreciated. ABDOMEN: Soft, non-tender. No signs of distention. No rebound no guarding, and no masses palpated. Bowel sounds are normal. EXTREMITIES: FROM in all major joints, no edema, no cyanosis or clubbing. NEURO: Alert and oriented x 3. No acute neurological deficits. Speech is normal and follows commands. MENTAL STATUS EXAMINATION On ADMISSION: Appearance: 22 y/o male, anxious, sitting down, making fair eye contact, fair grooming and hygiene. Behavior: cooperative Gait: normal Abnormal motor activity: none Speech: normal tone and volume, normal rate and rhythm Mood: better Affect: euthymic to euphoric Thought process: coherent to circumstantial Thought Content: Suicidal/Homicidal ideation: denied at the time of evaluation Delusions: none Obsessions: none Phobia: none Perceptual disturbance: none Attention: fair Orientation: intact Concentration: fair Memory: fair Insight: fair Judgment: fair Impulse control: fair DIAGNOSIS on ADMISSION: Bipolar Disorder unspecified Prov: Bipolar II Disorder vs Bipolar I Disorder DIAGNOSIS on DISCHARGE: Bipolar Disorder unspecified, Anxiety Disorder unspecified Objective - Appearance Appearance: Healthy Appearing, Obese Dysmorphic Features: No Hygiene: Normal Grooming: Fairly Well Kept - Behavior Psychomotor Activities: Normal Exhibits Abnormal Movement: No - Attitude and Relatedness Attitude and Relatedness: Cooperative Eye Contact: Fair - Speech Quality: Unpressured Latencies: Normal Quantity: Appropriate - Mood Patient's Decription of Mood: "Fine" - Affect Observed Affect: Fair Affect Consistent with: Euthymia - Thought Process Patient's Thought Process: Coherent Thought Content: No Passive Wish, No Suicidal Planning, No Homicidal Ideation, No Paranoid Ideation - Sensorium Experiencing Hallucinations: No, Sensorium is Clear Type of Hallucinations: Visual: No, Auditory: No, Command: No - Level of Consciousness Level of Consciousness: Alert Orientation: Yes Intact, Yes Orientated to Time, Yes Orientated to Place, Yes Orientated to Person - Impulse Control Impulse Control: Intact - Insight and Judgement Insight and Judgement: Fair - Group Participation Particating in Group Activities: Yes - Medication Management Medication Management Adherence: Yes Treatment Course & Assessment Clinical Course & Impression: Patient is 22 y/o male with history of Depression and recent Hypomanic like symptoms. Patient currently admitted due to worsening of depression and suicidal thoughts mixed with some hypomanic symptoms. Patient has also struggled with recent break up from a relationship of 3 years. Patient was a danger to self if discharged hence will be stabilized on inpatient unit with medication adjustments and therapy. Patient was admitted to [email or web address] on Q 15 min observation. Patient was on voluntary admission status. Integrate patient into the milieu,individual and group psychotherapy. Social work consulted for therapy and discharge planning. Patient gave informed consent to restart Lexapro at 10 mg PO QAM with plan to increase as tolerated and covered with a mood stabilizer to prevent any manic symptoms. Patient was discussed about various mood stabilizer including second generation antipsychotic medications. Patient agreed to start Lamictal 25 mg PO QAM with plan to monitor improvement and side effects. Patient was educated about possible side effects including SJS. During initial days of hospitalization. Patient reported continued symptoms of depression and anxiety, recurring suicidal thoughts but no intent or plan. Patient was restless and worried, wanting to cry. Patient sleeping and eating was fair. Patient was cooperative with staff and following redirections. Patient behavior was in control and safe on all check. Patient met his friends during this hospitalization and felt better afterwards. Patient's medications were continued with Lamictal 25 mg a day and Lexapro 10 mg a day and was tolerating it well without any side effects. Patient was attentive and participatory in group during this hospitalization, and remained in good behavioral control. Patient expressed positive insights regarding relevant treatment interventions. Patient stated understanding of material discussed and had appropriate questions. Patient reports continued improvement in symptoms of depression and anxiety, reduction in suicidal thoughts. Patient was less restless and less worried was sleeping better and participating in exercise class. Patient behavior was in good control and safe on all check. Patient was cooperative with staff and was granted comfort room privileges, staff pass with reduction in level of observation to Q30 minutes. Patient utilized it appropriately. Patient felt that parents were not supportive of his hospitalization and wanted him to take care of things better outside the hospital. But patient feels better today after processing his thinking and feels that he was able to be assertive in his decision making and was able to get his message across to his parents. Patient reported that therapy helped him and feels that friends are very supportive of him. Patient was able to use his coping skills effectively. Patient was planning to make it less stressful for him in the community upon discharge and more supportive. Patient was attending groups and using privileges appropriately. Patient reported having oral sore after biting his lips but no rash or other symptoms or signs related to SJS. Patient improved, mood was stable and behavior was in control, safe on all check. Patent reported no suicidal homicidal ideation. Patient was feeling safe returning to his routine in the community. No manic or psychotic symptoms of delusions or hallucinations. Patient was discussed with team and discharge was planned for today. As patient was not a danger to self and others and taking care of him self well. Patient was willing to follow up with outpatient care [facility] with Dr. Pompa and DBT groups. Patient was also referred to a therapist that he can follow up on a regular basis. Patient was also counseled about alcohol use and will maintain abstinence by himself and no craving or urges reported. Merits Inpatient Hospitalization: No Clear for Discharge: Adequate Clinical Respons, Acceptable Safety Profile, Low Utility of Inpt Care Inpatient DSM-V Dx: F31.9 Discharge Planning - Discharge Planning Discharge Plan: Outpatient Follow Up Recommendations for Continuing Care: Medication Management, Psychotherapy Medications: Discharge Medications: Albuterol (Ventolin Hfa Inhaler*) 1 puff INH Q4H PRN PRN Reason: SOB/WHEEZING Escitalopram Oxalate (Lexapro (Nf)) 10 mg PO DAILY [facility] Last Admin: 03/11/18 08:51 Dose: 10 mg Hydroxyzine HCl (Atarax Tab*) 50 mg PO BID PRN PRN Reason: ANXIETY Lamotrigine (Lamictal Tab(*)) 25 mg PO DAILY [facility] First Week of discharge and then Lamictal 50 mg PO Daily Second and Third Week Last Admin: 03/11/18 08:51 Dose: 25 mg Discharge Planning: Prescriptions provided for discharge [x] Yes [] No Follow up care details as per social work arrangements. Patient response to discharge plan: [x] eager for discharge [] agreeable with discharge plan [] ambivalent about discharge [] disagrees with discharge today
== END 2018-03-11 15:00 | disposition home or self-care (01) | DRG 753 ==
LOC: ED 21:21 → BSU 03-04 01:15 → ED 03-04 02:47
PROVIDERS: ADMIT Psychiatry & Neurology Psychiatry; ATTEND Psychiatry & Neurology Psychiatry
DX: F31.9 Bipolar disorder, unspecified (principal); R45.851 Suicidal ideations; F41.9 Anxiety disorder, unspecified; Z79.899 Other long term (current) drug therapy; Z88.8 Allergy status to other drugs, medicaments and biological substances; Z91.018 Allergy to other foods
CPT/HCPCS: 36415; 80053; 80307; 80320; 80329; 81003; 81015; 84443; 85025; 90686; 90853; 99222; 99231; 99238; 99284; A9270-GY; G0480

== ENCOUNTER 2018-04-14 17:12 | Emergency (ER) | payer BC ==
[2018-04-14] MEDS ORDERED: NS 0.9% 1000 ML* 1,000 ML IV ONE (17:21)
[2018-04-14] MEDS ORDERED: Famotidine IV* 10 MG/ML 2 ML (20 mg) IV SLOW PU ONE (17:22)
--- NOTE | 2018-04-14 17:24 | ED ---
Allergic Reaction/Systemic - HPI Summary HPI Summary: 22-year-old male presents with potentially allergic reaction today. He states that 2 days ago he started to notice some swelling in his lipds. He states that woke up and the swelling is worse. He states that his tongue and cheek started to swell. He went to [facility] and they gave him epinephrine , solu-medrol, and Benadryl. He states the swelling has gone down. He denies any chest pressure or shortness of breath. No hives. No sore throat. No nausea vomiting or abdominal pain. He states just now that his lips just feels swollen. He has never had this reaction before. He has history of extensive food allergies but does not give normally get this reaction. He denies any new foods or products. He states that he has been slowly titrating up the Lamictal for bipolar. he started the 100mg dose a week ago. He states this is the only new medication he has been taking. he also currently takes lexapro which he has been taking for a while. he was not on any other medication beside lexapro prior. no si/hi. - History of Current Complaint Chief Complaint: EDAllergicReaction Time Seen by Provider: 04/14/18 17:14 Pain Intensity: 0 - Allergies/Home Medications Allergies/Adverse Reactions: Allergies Allergy/AdvReac Type Severity Reaction Status Date / Time apple Allergy Hives/Diff. Verified 04/14/18 17:17 Breathing/I tching vasquez Allergy Hives/Diff. Verified 04/14/18 17:17 Breathing/I tching hazelnut Allergy Anaphylatic Verified 04/14/18 17:17 Shock naproxen Allergy Hives Verified 04/14/18 17:17 peach Allergy Hives/Diff. Verified 04/14/18 17:17 Breathing/I tching pear Allergy Hives/Diff. Verified 04/14/18 17:17 Breathing/I tching strawberry Allergy Hives/Diff. Verified 04/14/18 17:17 Breathing/I tching Tree Nuts Allergy Hives/Diff. Verified 04/14/18 17:17 Breathing/I tching Home Medications: Home Medications LoraTADine TAB(NF) [Claritin 10 MG TAB(NF)] 10 mg PO DAILY PRN 04/14/18 [ History Confirmed 04/14/18] lamoTRIgine TAB(*) [LaMICtal TAB(*)] 100 mg PO BEDTIME 04/14/18 [History Confirmed 04/14/18] PMH/Surg Hx/FS Hx/Imm Hx Endocrine/Hematology History: Reports: Hx Diabetes - Pt has been diagnosed as pre diabetic, Other Endocrine/Hematological Disorders Cardiovascular History: Reports: Hx Hypercholesterolemia Respiratory History: Reports: Hx Asthma GI History: Reports: Other GI Disorders - Hx of fatty liver Sensory History: Reports: Hx Contacts or Glasses Denies: Hx Legally Blind, Hx Deafness, Hx Hearing Aid Opthamlomology History: Reports: Hx Contacts or Glasses Denies: Hx Legally Blind Psychiatric History: Reports: Hx Anxiety, Hx Depression, Hx Bipolar Disorder - type II - Immunization History Date of Tetanus Vaccine: assumed UTD Date of Influenza Vaccine: none Infectious Disease History: No Infectious Disease History: Denies: Traveled Outside the [place] in Last 30 Days - Family History Known Family History: Negative: Blood Disorder - Social History Alcohol Use: Rare Substance Use Type: Reports: Marijuana Substance Use Comment - Amount & Last Used: Mid January - unknown amount Smoking Status (MU): Never Smoked Tobacco Review of Systems Negative: Fever Positive: Sore Throat, Other - lip swelling Negative: Chest Pain Negative: Shortness Of Breath All Other Systems Reviewed And Are Negative: Yes Physical Exam Triage Information Reviewed: Yes Vital Signs On Initial Exam: Initial Vitals Pulse BP Pulse Ox 108 119/88 99 04/14/18 17:13 04/14/18 17:13 04/14/18 17:13 Vital Signs Reviewed: Yes Appearance: Positive: Well-Appearing Skin: Positive: Warm, Dry Head/Face: Positive: Other - mild edema to lips Eyes: Positive: Normal, EOMI, RODRICK, Conjunctiva Clear ENT: Positive: Normal ENT inspection, Pharynx normal, TMs normal Respiratory/Lung Sounds: Positive: Clear to Auscultation, Breath Sounds Present Cardiovascular: Positive: Normal, RRR Abdomen Description: Positive: Nontender, Soft Bowel Sounds: Positive: Present Musculoskeletal: Positive: Normal Neurological: Positive: Normal Psychiatric: Positive: Normal Diagnostics - Vital Signs Vital Signs Temp Pulse Resp BP Pulse Ox 04/14/18 17:14 98.4 F 64 17 119/88 98 04/14/18 17:13 108 119/88 99 - Laboratory Result Diagrams: 04/14/18 17:29 04/14/18 17:29 Lab Statement: Any lab studies that have been ordered have been reviewed, and results considered in the medical decision making process. Re-Evaluation - Re-Evaluation First Eval Re-Evaluation Time: 18:05 Change: Unchanged Comment: unchanged Second Eval Re-Evaluation Time: 18:26 Change: Unchanged Comment: no SOB, lungs CTA. mild swelling to lips still present Third Eval Re-Evaluation Time: 19:21 Change: Improved Comment: swelling is closed to be resolved, time is currently 3 hours post epi given at IC which was given at 16:21 Allergic Reaction Course/Dx - Course Course Of Treatment: 22 year old male presents with potential allergic reaction today. started with mild lip swelling two days ago. today develop swelling lip and mouth. given epi, solumedrol and benadryl by IC. denies any chest pain, SOB , abd pain, n/v. only new med is new dose of lamtical 100mg a week ago. never had this reaction before. on exam has mild edema of lips. tongue normal. lungs CTA. gave dose of pepcid and fluids will in ED. will discuss with psych as seems to be psych med causing symptoms. wbc normal. crp slightly elevated. attempted to call psych and discussed with dr raymond that could be a reaction to lamitical. discussed will titerate down. 50mg for a week, 25mg for a week. told to follow up with psych about potential adding a different med in the future but do not want to add anything at this time that may cause a further reaction and patient states med is just barely working anyways and is doing fine otherwise. will add on prednisone, pepcid and hydroxyzine for reaction. patient has epipen at home and warned if symptoms worsen to take it and return. patient understand and agrees with plan. - Diagnoses Differential Diagnosis/HQI/PQRI: Positive: Anaphylaxis, Angioedema, Local Allergic Reaction Provider Diagnoses: Angioedema Discharge - Sign-Out/Discharge Documenting (check all that apply): Patient Departure - Discharge Plan Condition: Good Disposition: HOME Prescriptions: Famotidine TAB* [Pepcid 20 MG TAB*] 20 mg PO BID #8 tab hydrOXYzine HCL TAB* [Atarax 25 MG TAB*] 25 mg PO QID PRN #30 tab PRN Reason: Allergy Symptoms predniSONE TAB* [Deltasone TAB*] 50 mg PO DAILY #4 tab Patient Education Materials: Angioedema (ED) Referrals: No Primary Care Phys,NOPCP [Primary Care Provider] - Additional Instructions: Take hydroxyzine every 6 hours for next 5 days Take Pepcid twice a day for 4 days Take steroid once a day for 4 days starting tomorrow take lamitcal 50mg for a week, 25mg for a week to titrate off the medication Follow up with psychiatry for med change Follow up with [facility] within 4 days Return to ED if shortness of breath, chest pain, worsening swelling in lips, or if develop any new or worsening symptoms - Billing Disposition and Condition Condition: GOOD Disposition: Home
[2018-04-14 17:36] LABS: ABS Basophils 0 10^3/ul (0-0.2); ABS Eosinophils 0.3 10^3/ul (0-0.6); ABS Lymphocytes 2.2 10^3/ul (1.0-4.8); ABS Monocytes 0.5 10^3/ul (0-0.8); ABS Neutrophils 7.1 10^3/ul (1.5-7.7); ABS Nucleated RBC 0 10^3/ul; Eosinophil % 2.7 %; Hematocrit 44 % (42-52); Hemoglobin 14.9 g/dl (14.0-18.0); Lymphocyte % 21.6 %; Mean Corpuscular HGB Conc 34 g/dl (31-36); Mean Corpuscular Hemoglobin 28 pg (27-31); Mean Corpuscular Volume 82 fL (80-94); Mean Platelet Volume 7.3 fL (7.4-10.4); Nucleated Red Blood Cells % 0.2; Platelet Count 367 10^3/ul (150-450); Red Blood Count 5.39 10^6/ul (4.00-5.40); Red Cell Distribution Width 13 % (10.5-15); White Blood Count 10.1 10^3/ul (3.5-10.8)
[2018-04-14 17:52] LABS: Albumin/Globulin Ratio 1.7 (1-3); BUN/Creatinine Ratio 14.4 (8-20); C Reactive Protein 8.05 mg/L (<8.01); Calcium 9.9 mg/dL (8.6-10.3); Globulin 2.9 g/dL (2-4); Potassium 3.9 mmol/L (3.5-5.0); Total Bilirubin 0.8 mg/dL (0.2-1.0); Total Protein 7.9 g/dL (6.4-8.9)
[2018-04-14 19:31] VITALS: BP 98/74
== END 2018-04-14 19:31 | disposition home or self-care (01) ==
LOC: ED 17:12
DX: T78.3XXA Angioneurotic edema, initial encounter (principal); J02.9 Acute pharyngitis, unspecified; R73.03 Prediabetes
CPT/HCPCS: 36415; 80053; 83520; 85025; 86140; 86160; 96361; 96374; 99283

== ENCOUNTER 2018-04-15 12:04 | Emergency (ER) | payer BC ==
[2018-04-15] MEDS ORDERED: NS 0.9% 1000 ML* 1,000 ML IV ONE (14:27)
[2018-04-15 14:52] LABS: ABS Basophils 0 10^3/ul (0-0.2); ABS Eosinophils 0 10^3/ul (0-0.6); ABS Lymphocytes 1.9 10^3/ul (1.0-4.8); ABS Monocytes 0.5 10^3/ul (0-0.8); ABS Neutrophils 9.2 10^3/ul (1.5-7.7); ABS Nucleated RBC 0 10^3/ul; Eosinophil % 0.3 %; Hematocrit 42 % (42-52); Hemoglobin 14.3 g/dl (14.0-18.0); Lymphocyte % 16.3 %; Mean Corpuscular HGB Conc 34 g/dl (31-36); Mean Corpuscular Hemoglobin 28 pg (27-31); Mean Corpuscular Volume 82 fL (80-94); Mean Platelet Volume 7.5 fL (7.4-10.4); Nucleated Red Blood Cells % 0.1; Platelet Count 393 10^3/ul (150-450); Red Blood Count 5.17 10^6/ul (4.00-5.40); Red Cell Distribution Width 13 % (10.5-15); White Blood Count 11.7 10^3/ul (3.5-10.8)
[2018-04-15 15:08] LABS: Albumin 4.9 g/dL (3.2-5.2); Albumin/Globulin Ratio 1.6 (1-3); C Reactive Protein 12.75 mg/L (<8.01); Calcium 9.8 mg/dL (8.6-10.3); EGFR Non-African American 116.5 (>60); Potassium 3.6 mmol/L (3.5-5.0); Total Bilirubin 0.8 mg/dL (0.2-1.0); Total Protein 7.9 g/dL (6.4-8.9)
[2018-04-15 18:06] VITALS: BP 109/74
--- NOTE | 2018-04-15 18:32 | ED ---
Skin Complaint - HPI Summary HPI Summary: Pt. is a 22 y.o male who presents to the ER for painful tongue, blistered lips, and rash on palms, soles of feet and genitals x 1 day. Pt. was seen in ED yesterday for allergic rxn from suspected Lamictal which he started a few weeks ago. Yesterday he received epi, benadryl and steroids at clinic. He was dc from ER with pepcid, prednisone and atarax. Pt. states mouth and tongue swelling has improved but now he has a painful tongue and lips. Psych was consulted yesterday and recommended tapering pt. off of lamictal. Pt. has numerous food allergies. Sxs are moderate in severity. Pt. also having difficulty eating and drinking secondary to pain in mouth. Past medical hx asthma and bipolar. - History of Current Complaint Chief Complaint: EDGeneral Time Seen by Provider: 04/15/18 13:29 Stated Complaint: MOUTH SWELLING Hx Obtained From: Patient Pain Intensity: 7 Pain Scale Used: 0-10 Numeric - Additional Pertinent History Primary Care Physician: DAVE - Allergy/Home Medications Allergies/Adverse Reactions: Allergies Allergy/AdvReac Type Severity Reaction Status Date / Time apple Allergy Hives/Diff. Verified 04/15/18 12:21 Breathing/I tching vasquez Allergy Hives/Diff. Verified 04/15/18 12:21 Breathing/I tching hazelnut Allergy Anaphylatic Verified 04/15/18 12:21 Shock naproxen Allergy Hives Verified 04/15/18 12:21 peach Allergy Hives/Diff. Verified 04/15/18 12:21 Breathing/I tching pear Allergy Hives/Diff. Verified 04/15/18 12:21 Breathing/I tching strawberry Allergy Hives/Diff. Verified 04/15/18 12:21 Breathing/I tching Tree Nuts Allergy Hives/Diff. Verified 04/15/18 12:21 Breathing/I tching PMH/Surg Hx/FS Hx/Imm Hx Previously Healthy: Yes Endocrine/Hematology History: Reports: Hx Diabetes - Pt has been diagnosed as pre diabetic, Other Endocrine/Hematological Disorders Cardiovascular History: Reports: Hx Hypercholesterolemia Respiratory History: Reports: Hx Asthma GI History: Reports: Other GI Disorders - Hx of fatty liver Sensory History: Reports: Hx Contacts or Glasses Denies: Hx Legally Blind, Hx Deafness, Hx Hearing Aid Opthamlomology History: Reports: Hx Contacts or Glasses Denies: Hx Legally Blind Psychiatric History: Reports: Hx Anxiety, Hx Depression, Hx Bipolar Disorder - type II - Immunization History Date of Tetanus Vaccine: assumed UTD Date of Influenza Vaccine: none Infectious Disease History: No Infectious Disease History: Denies: Traveled Outside the [place] in Last 30 Days - Family History Known Family History: Negative: Blood Disorder - Social History Occupation: Student Lives: Dormitory/Roommates Alcohol Use: Rare Substance Use Type: Reports: Marijuana Substance Use Comment - Amount & Last Used: January - unknown amount Smoking Status (MU): Never Smoked Tobacco Review of Systems Constitutional: Negative Eyes: Negative Positive: Other - pain to lips and tongue Cardiovascular: Negative Respiratory: Negative Musculoskeletal: Negative Positive: Rash Neurological: Negative All Other Systems Reviewed And Are Negative: Yes Physical Exam Triage Information Reviewed: Yes Vital Signs On Initial Exam: Initial Vitals Temp Pulse Resp BP Pulse Ox 98.3 F 85 16 119/91 99 04/15/18 12:18 04/15/18 12:18 04/15/18 12:18 04/15/18 12:18 04/15/18 12:18 Vital Signs Reviewed: Yes Appearance: Positive: Well-Appearing - Pt. sitting in chair in NAD. Skin: Positive: Warm, Dry, Other - Small erythematous macular rash noted to palms of hands. No blisters of vesicles. Negative nikolsky sign. Eyes: Positive: Normal, EOMI, Conjunctiva Clear ENT: Positive: Other - Top and bottom lips are blistered. Tongue is bright red and mildly edematous. Oral pharynx is patent. Neck: Positive: Supple Respiratory/Lung Sounds: Positive: Clear to Auscultation, Breath Sounds Present Cardiovascular: Positive: Normal, RRR Neurological: Positive: Normal, CN Intact II-III Psychiatric: Positive: Affect/Mood Appropriate Diagnostics - Vital Signs Vital Signs Temp Pulse Resp BP Pulse Ox 04/15/18 18:04 98 F 79 16 109/74 99 18 12:18 98.3 F 85 16 119/91 99 - Laboratory Lab Results: Lab Results 04/15/18 04/15/18 Range/Units 14:40 14:40 WBC 11.7 H (3.5-10.8) 10^3/ul RBC 5.17 (4.00-5.40) 10^6/ul Hgb 14.3 (14.0-18.0) g/dl Hct 42 (42-52) % MCV 82 (80-94) fL MCH 28 (27-31) pg MCHC 34 (31-36) g/dl RDW 13 (10.5-15) % Plt Count 393 (150-450) 10^3/ul MPV 7.5 (7.4-10.4) fL Neut % (Auto) 78.8 % Lymph % (Auto) 16.3 % Towns % (Auto) 4.2 % Eos % (Auto) 0.3 % Baso % (Auto) 0.4 % Absolute Neuts (auto) 9.2 H (1.5-7.7) 10^3/ul Absolute Lymphs (auto) 1.9 (1.0-4.8) 10^3/ul Absolute Monos (auto) 0.5 (0-0.8) 10^3/ul Absolute Eos (auto) 0 (0-0.6) 10^3/ul Absolute Basos (auto) 0 (0-0.2) 10^3/ul Absolute Nucleated RBC 0 10^3/ul Nucleated RBC % 0.1 Sodium 138 (135-145) mmol/L Potassium 3.6 (3.5-5.0) mmol/L Chloride 103 (101-111) mmol/L Carbon Dioxide 26 (22-32) mmol/L Anion Gap 9 (2-11) mmol/L BUN 16 (6-24) mg/dL Creatinine 0.84 (0.67-1.17) mg/dL Est GFR ( Amer) 141.0 (>60) Est GFR (Non-Af Amer) 116.5 (>60) BUN/Creatinine Ratio 19.0 (8-20) Glucose 92 (70-100) mg/dL Calcium 9.8 (8.6-10.3) mg/dL Total Bilirubin 0.80 (0.2-1.0) mg/dL AST 25 (13-39) U/L ALT 62 H (7-52) U/L Alkaline Phosphatase 62 (34-104) U/L C-Reactive Protein 12.75 H (<8.01) mg/L Total Protein 7.9 (6.4-8.9) g/dL Albumin 4.9 (3.2-5.2) g/dL Globulin 3.0 (2-4) g/dL Albumin/Globulin Ratio 1.6 (1-3) Result Diagrams: 04/15/18 14:40 04/15/18 14:40 Lab Statement: Any lab studies that have been ordered have been reviewed, and results considered in the medical decision making process. Course/Dx - Course Course Of Treatment: Pt. presenting with the above sxs. He is afebrile with stable VS. No signs of anaphylactic rxn. Concerned with blistering to pt.s mouth. Rash on hands almost looks like start of hand foot and mouth but he has had no prodromal sxs. Pt. requesting IV fluids with concern for dehdration since he has not been eating well. WIll check basic labs. Pt. examined by Dr. Segura as well and he is concerned sxs may be secondary to an autoimmune disorder. He recommends hospitalist consults for possible admission for iv fluids and derm/rheumatology consult. Labs whos mild elevation in WBC and CRP. Pt. was examined by hospitalist, Dr. Kenny and her [employer]IE[employer] SALES OFFICER. They consulted with psychiatrist, Dr. Iglesias, who feels pt.'s sxs are most likely secondary to allergic rxn to lamictal. He recommends completely stopping lamictal today. Hospitalist recommends discharging pt. Pt. has an apt. with his psychiatrist this . To continue rx from yesterday. Stop lamictal and to return to ER immediately for new or worsening sxs. Pt. understands and agrees with plan. - Differential Diagnoses - Skin Complaint Differential Diagnoses: Abscess, Airway Obstruction, Allergic Reaction, Anaphylaxis, Angioedema, Cellulitis, Contact Dermatitis - Diagnoses Provider Diagnoses: Drug reaction, Rash Discharge - Sign-Out/Discharge Documenting (check all that apply): Patient Departure - Discharge Plan Condition: Good Disposition: HOME Patient Education Materials: Lamotrigine (By mouth), Antibiotic Medication Allergy (ED) Referrals: Care [facility] [Outside] Additional Instructions: Stop taking Lamictal immediately Follow up with your psychiatrist this week as scheduled Take medication your were prescribed yesterday Return to ER immediately for worsening rash, facial/mouth swelling, fever, or if concerned - Billing Disposition and Condition Condition: GOOD Disposition: Home
--- NOTE | 2018-04-16 20:00 | CONS ---
HOSPITAL MEDICINE CONSULTATION REPORT: DATE OF CONSULT: 04/15/18 - EMERGENCY DEPT PRIMARY CARE PHYSICIAN: None. ATTENDING PHYSICIAN: Dr. Hali Kenny (dictation provided by Florentino Latham NP). REASON FOR CONSULT: Question regarding need for admission. HISTORY OF PRESENT ILLNESS: Mr. Bah is a 22-year-old male with a past medical history of bipolar disorder, on Lamictal and Lexapro. Lamictal was recently started approximately 1 month ago. The patient states about 1 week ago, he developed some swelling in his mouth. This has progressed in severity and he now has developed some ulceration along his lips and on the soft palate. He has also noticed some very small nonulcerated punctuate pinpoint lesions to his palm scattered and intermittently arising. He has also noted these similar lesions on the soles of his feet. He also has some dry flaky, itchiness to his scrotum, but no visible rash. The patient was seen in the emergency room on for similar complaint, at that time complaining of swelling to his lips and mouth. The patient has multiple food allergies and it was suspected that food allergy was the cause. It was also suspected at that time, it could have been Lamictal, and the plan was to taper the Lamictal off. The patient was given a prescription for prednisone and Benadryl. The patient states that the pain from the swelling has increased and therefore he returned to the ED for evaluation. PAST MEDICAL HISTORY: Bipolar disorder. MEDICATIONS: 1. Albuterol inhaler p.r.n. 2. Epinephrine injector IM as needed. 3. Escitalopram 10 mg p.o. daily. 4. Famotidine 20 mg p.o. b.i.d. 5. Hydroxyzine 25 mg p.o. four times a day p.r.n.. 6. Hydroxyzine 50 mg p.o. b.i.d. p.r.n. 7. Lamotrigine 100 mg p.o. at bedtime. 8. Loratadine 10 mg p.o. daily. 9. Prednisone 50 mg p.o. daily. ALLERGIES: To APPLE, BLANKENSHIP, HAZELNUT, NAPROXEN, PEACH, PEAR, STRAWBERRY, TREE NUTS. FAMILY HISTORY: Not reviewed. SOCIAL HISTORY: No report of significant alcohol, tobacco, or drug use. The patient is a student at . REVIEW OF SYSTEMS: A 14-point review of systems was completed with Mr. Bah and all those not mentioned above were negative. PHYSICAL EXAM: Vital Signs: Temperature 98, pulse rate 79, respiratory rate 16 , O2 saturation 99% on room air, blood pressure 109/74. General: Mr. Bah is sitting in the chair. He is in no acute distress. Based on the chief complaint , exam consisted of a skin exam only. The patient is noted to have swelling of his lips with small blistering ulcerations on the outskirts of the lips with some dried blood and cracks in the areas. The inside of the mouth lesions were noted were on the soft palate. Again, they were tiny blistering ulcerations. The patient had 2 punctate red dots to his right palm. No lesion was noted to the left palm. He described having some intermittent lesions to his soles of the feet and having some dry nonerythematous patches to his scrotum. LABORATORY DATA: WBC 11.7, hemoglobin 14.3, hematocrit 42, platelet count 393. Sodium 138, potassium 3.6, chloride 103, serum bicarbonate 20, BUN 16, creatinine 0.84, glucose 92. CRP 12.75. ASSESSMENT AND PLAN: Mr. Bah is a 22-year-old male with multiple food allergies and recent addition of Lamictal to his medication regimen approximately 1 month ago, who returns again today to the emergency room with concern for ulceration in his mouth as well as some intermittent rash to his palms, soles, and scrotum. I have reviewed the case at length with Dr. Kenny as well as Dr. Gray from the psychiatry team. Based on the description and presence of these ulcerations in conjunction with the recent initiation of Lamictal, it is highly suspected that these symptoms are related to the Lamictal. It is a medication that has been known to cause multiple types of rashes. Our recommendation is that he immediately discontinues Lamictal as Lamictal is rarely associated with Drummond-Tyrone syndrome. The patient has already been started on prednisone, Benadryl for his allergic reaction, which we think he should continue. Dr. Gray agreed as well. The patient is stable. He has no leukocytosis. His vital signs are completely stable. He is able to swallow liquids easily. Our recommendation is that he can be discharged to home. However, he is strongly encouraged to return immediately to the emergency room should he feel that the rash is worsening especially in his mouth or he is unable to tolerate oral intake. The patient states understanding of such. I reviewed this again with the emergency room provider and again counseled the patient that any worsening of the rash would deserve immediate attention either here or at [facility]. The patient is confident, stable, and able to follow through these instructions. TIME SPENT: Approximately 60 minutes was spent on the consultation of this patient, more than half of the time was spent with the patient at the bedside reviewing the events leading up to this consultation, performing the physical examination, and reviewing my plan of care. FLORENTINO LATHAM NP [id number]/CPS #: [id number] MTDD
== END 2018-04-15 18:04 | disposition home or self-care (01) ==
LOC: ED 12:04
DX: L27.0 Generalized skin eruption due to drugs and medicaments taken internally (principal); E11.9 Type 2 diabetes mellitus without complications; E78.00 Pure hypercholesterolemia, unspecified; F31.81 Bipolar II disorder; J45.909 Unspecified asthma, uncomplicated
CPT/HCPCS: 36415; 80053; 85025; 86140; 96361; 99282

== ENCOUNTER 2018-11-04 06:32 | Emergency (ER) | payer BC, OTHER ==
[2018-11-04] MEDS ORDERED: Dexamethasone Oral Solution* 1 MG/ML 10 ML UDC (10 MG) PO ONE (07:34)
--- NOTE | 2018-11-04 07:40 | ED ---
Asthma - HPI Summary HPI Summary: This patient is a 23 year old M presenting to [facility] accompanied by EMS with a chief complaint of asthma attack since a couple of hours ago. The patient was walking to a building at around 0500 this morning 11/04/18 when he experienced an asthma attack. He became dizzy, disoriented and confused. Patient reported tingle sensations in his fingers and face, as well as coughing , wheezing, and sore chest. Patient denies any fever, chills, erythema of eyes, sore throat, abdominal pain, N/V, dysuria, hematuria, myalgia, edema, rash, sweats. Patient took 2 doses of his inhaler, one at 0500, the second at 0530 with little improvement of symptoms. He notes that this asthma attack was worse than usual and that his symptoms improved with nebulizer treatment. The patient rates the pain 4/10 in severity. Symptoms aggravated by deep breathing. Symptoms alleviated by nebulizer. Last week he had an asthma attack with similar symptoms so he went to urgent care and was given prednisone, 40 mg. Patient reports that he is on his fifth day of this medication and reports he was given enough prednisone for 13-15 days. Patient has hx of bipolar 2 and anxiety disorder. - History of Current Complaint Chief Complaint: EDAsthma Stated Complaint: ASTHMA PER EMS Time Seen by Provider: 11/04/18 07:20 Hx Obtained From: Patient Onset/Duration: Sudden Onset, Lasting Hours - 2, Resolved Timing: Hours - 2 Initial Severity: Moderate Current Severity: None Pain Intensity: 4 Pain Scale Used: 0-10 Numeric Location/Character: Cough (Nonproductive) Aggravating Symptoms: Exertion Alleviating Symptoms: Rest, Inhalers/Nebulizers Associated Signs and Symptoms: Positive: Shortness of Breath, Other - patient was dizzy, disoriented and confused. Patient reported tingle sensations in his fingers and face, as well as coughing, wheezing, and sore chest. Patient denies any fever, chills, erythema of eyes, sore throat, abdominal pain, N/V, dysuria, hematuria, myalgia, edema, rash, sweats. - Allergy/Home Medications Allergies/Adverse Reactions: Allergies Allergy/AdvReac Type Severity Reaction Status Date / Time apple Allergy Hives/Diff. Verified 04/15/18 12:21 Breathing/I tching vasquez Allergy Hives/Diff. Verified 04/15/18 12:21 Breathing/I tching hazelnut Allergy Anaphylatic Verified 04/15/18 12:21 Shock naproxen Allergy Hives Verified 04/15/18 12:21 peach Allergy Hives/Diff. Verified 04/15/18 12:21 Breathing/I tching pear Allergy Hives/Diff. Verified 04/15/18 12:21 Breathing/I tching strawberry Allergy Hives/Diff. Verified 04/15/18 12:21 Breathing/I tching Tree Nuts Allergy Hives/Diff. Verified 04/15/18 12:21 Breathing/I tching Home Medications: Home Medications [place] Carbonate ER TAB* 450 mg PO DAILY 11/04/18 [History Confirmed 11/04/18] QUEtiapine TAB* [Seroquel 25 MG TAB*] 50 mg PO DAILY 11/04/18 [History Confirmed 11/04/18] predniSONE TAB* [Deltasone TAB*] 40 mg PO DAILY 11/04/18 [History Confirmed 01/15] PMH/Surg Hx/FS Hx/Imm Hx Previously Healthy: No Endocrine/Hematology History: Reports: Hx Diabetes - Pt has been diagnosed as pre diabetic, Other Endocrine/Hematological Disorders Cardiovascular History: Reports: Hx Hypercholesterolemia Respiratory History: Reports: Hx Asthma GI History: Reports: Other GI Disorders - Hx of fatty liver Sensory History: Reports: Hx Contacts or Glasses Denies: Hx Legally Blind, Hx Deafness, Hx Hearing Aid Opthamlomology History: Reports: Hx Contacts or Glasses Denies: Hx Legally Blind Psychiatric History: Reports: Hx Anxiety, Hx Depression, Hx Bipolar Disorder - type II - Surgical History Surgical History: None - Immunization History Date of Tetanus Vaccine: assumed UTD Date of Influenza Vaccine: none Immunizations Up to Date: Yes Infectious Disease History: No Infectious Disease History: Denies: Traveled Outside the [place] in Last 30 Days - Family History Known Family History: Negative: Blood Disorder - Social History Alcohol Use: Rare Substance Use Type: Reports: Marijuana Substance Use Comment - Amount & Last Used: Mid January - unknown amount Smoking Status (MU): Never Smoked Tobacco Do You Chew or Dip Tobacco: No Have You Chewed or Dipped Tobacco in the LAST YEAR: No Have You Smoked in the Last Year: No Review of Systems Negative: Fever, Chills, Skin Diaphoresis Negative: Erythema Negative: Sore Throat Positive: Other - sore chest Positive: Shortness Of Breath, Cough, Other - wheezing Negative: Abdominal Pain, Vomiting, Nausea Negative: dysuria, hematuria Negative: Myalgia, Edema Negative: Rash Neurological: Other - tingle sensation in fingers and face, negative - dizziness All Other Systems Reviewed And Are Negative: Yes Physical Exam - Summary Physical Exam Summary: Constitutional: Well-developed, Well-nourished, Alert. (-) Distressed Skin: Warm, Dry HENT: Normocephalic; Atraumatic Eyes: Conjunctiva normal Neck: Musculoskeletal ROM normal neck. (-) JVD, (-) Stridor, (-) Tracheal deviation Cardio: Rhythm regular, rate normal, Heart sounds normal; Intact distal pulses; The pedal pulses are 2+ and symmetric. Radial pulses are 2+ and symmetric. (-) Murmur Pulmonary/Chest wall: Effort normal. (-) Respiratory distress, (-) Wheezes, (-) Rales Abd: Soft, (-) tenderness, (-) Distension, (-) Guarding, (-) Rebound Musculoskeletal: (-) Edema Lymph: (-) Cervical adenopathy Neuro: Alert, Oriented x3 Psych: Mood and affect Normal Triage Information Reviewed: Yes Vital Signs On Initial Exam: Initial Vitals Temp Pulse Resp BP Pulse Ox 98.3 F 99 23 137/88 97 11/04/18 06:34 11/04/18 06:34 11/04/18 06:34 11/04/18 06:34 11/04/18 06:34 Vital Signs Reviewed: Yes Diagnostics - Vital Signs Vital Signs Temp Pulse Resp BP Pulse Ox 11/04/18 06:38 23 11/04/18 06:34 98.3 F 99 23 137/88 97 - Laboratory Lab Statement: Any lab studies that have been ordered have been reviewed, and results considered in the medical decision making process. Re-Evaluation - Re-Evaluation First Eval Re-Evaluation Time: 09:35 Change: Improved Comment: Patient's lungs are clear. Patient notes he feels better. Respiratory therapist gave patient a spacer, which he is to use every time he uses his inhaler. Patient also had 98% oxygen while ambulating on RA. Asthma Course/Dx - Course Course Of Treatment: This patient is a 23 year old M [facility] with a chief complaint of asthma attack since a couple of hours ago. The patient was walking to a building at around 0500 this morning 11/04/18 when he experienced an asthma attack. He became dizzy, disoriented and confused. Patient reported tingle sensations in his fingers and face, as well as coughing, wheezing, and sore chest. Patient denies any fever, chills, erythema of eyes, sore throat, abdominal pain, N/V, dysuria, hematuria, myalgia , edema, rash, sweats. Patient took 2 doses of his inhaler, one at 0500, the second at 0530 with little improvement of symptoms. He notes that this asthma attack was worse than usual and that his symptoms improved with nebulizer treatment. The patient rates the pain 4/10 in severity. Symptoms aggravated by deep breathing. Symptoms alleviated by nebulizer. Last week he had an asthma attack with similar symptoms so he went to urgent care and was given prednisone , 40 mg. Patient reports that he is on his fifth day of this medication and reports he was given enough prednisone for 13-15 days. Patient has hx of bipolar 2 and anxiety disorder. Physical exam was unremarkable. During the ED Course, the patient was given Decadron Oral Solution. Patient's lungs are clear. Patient notes he feels better. Respiratory therapist gave patient a spacer, which he is to use every time he uses his inhaler. Patient also had 98% oxygen while ambulating on RA. He was discharged to home with PCP follow up. - Diagnoses Provider Diagnoses: Asthma exacerbation Discharge - Sign-Out/Discharge Documenting (check all that apply): Patient Departure - discharge Patient Received Moderate/Deep Sedation with Procedure: No - Discharge Plan Condition: Stable Disposition: HOME Patient Education Materials: Asthma (ED) Referrals: [facility] [Z.BUSINESS, APPLICATION, OTHER] - 3 Days Additional Instructions: Use the spacer every time you use your inhaler. Follow up with the [facility] in 2-3 days. Return to the ED for any new or worsening symptoms. - Attestation Statements Document Initiated by Scribe: Yes Documenting Scribe: Fabio White Provider For Whom Scribe is Documenting (Include Credential): Dr. Hardik Potts MD Scribe Attestation: I, Fabio Reyes and Adriel White, scribed for Dr. Hardik Potts MD on 11/04/18 at 1217. Status of Scribe Document: Ready
[2018-11-04 09:34] VITALS: BP 119/73
== END 2018-11-04 09:47 | disposition home or self-care (01) ==
LOC: ED 06:32
DX: J45.901 Unspecified asthma with (acute) exacerbation (principal); Z88.8 Allergy status to other drugs, medicaments and biological substances; Z79.899 Other long term (current) drug therapy
CPT/HCPCS: 99282